=== PATIENT | male | born 1945 | race Caucasian/White ===

== ENCOUNTER 2024-07-29 11:23 | Inpatient (IN) | payer OTHER, SELFPAY ==
[2024-07-29] VITALS (13 sets, daily range): BP systolic 148–182; BP diastolic 67–90; BMI 27.5
--- NOTE | 2024-07-29 10:49 | W.PN.CARDCBS ---
Addendum entered and electronically signed by LAMONT Man 07/29/24 14:26:
2D Echo results- 07/29/24 at [facility] today prior to transfer:
SUMMARY
1. Normal left ventricular systolic function without distinct regional wall motion abnormalities.
2. Estimated left ventricular ejection fraction is normal with an ejection fraction of 53.2 % by Galicia's method.
3. Normal LV diastolic function, with normal left atrial filling pressure.
4. Normal right ventricular size and systolic function.
5. Normal left atrium by volume index (27.5 mL/m2) and normal right atrium by area (17.7 cm2).
6. Aortic valve is tricuspid and sclerotic. No evidence of aortic valve stenosis. Mild to moderate aortic regurgitation.
7. Possible calcium between NCC and LCC of the aorta.
8. Mild mitral annular calcification.
9. Inferior vena cava normal in size (<2.1 cm) + less than 50% variably consistent with elevated right atrial pressures (8 mmHg).
10. Right atrial pressure of (8 mmHg), the estimated right ventricular systolic pressure is normal at (27.8 mmHg).
11. Compared to a prior TTE study from 06/13/2021, no significant changes are seen.
Original Note:
Today's Communication / Plan
-
urgent LHC
continue to trend troponin/CK to peak
cardiac rehab
Impression / Plan
-
This is the H&P summary.
Full H&P scanned into documents.
PCP: Aquiles Gonzalez MD
CDY: Parish Kaye MD
HPI: 79 yo male hx of CAD s/p PCI of LAD 2013 at [facility], thrombocytopenia, IVONNE, diverticulitis followed by ATC developed SSCP at rest radiating to left arm yesterday lasting an hour. Later in the day had another episode that did not remit over at least
an hour. His BP was higher than normal. took to [facility] ER, was having CP on arrival, tx with SL NTG and then nitro GTT with resolution of pain. No pain overnight. First EKG showed new ST depressions anterolateral leads. HS Troponin up to 173, CK
112, CKMB 11.1 and both trending up.
FU EKG this am showed resolution of ST changes. He is pain free and hemodynamically stable. No recent illnesses, has been compliant with medications. 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 He is ruling
in for an NSTEMI. Started on IV heparin.
Transferred to for [facility] today.
IMPRESSION:
NSTEMI
Hx of CAD with prior LAD PCI 2013 at [facility]
Chronic thrombocytopenia
Mild normocytic anemia
HTN
HLD
IVONNE, untreated
Diverticulosis, prior colon resection
PLAN:
[facility] today
trend troponin/CKMB to peak
325mg asa given this morning
will be on DAPT post cath- monitor platelets with hx thrombocytopenia
echo done at [facility] today- results pending
High intensity statin therapy- will increase atorvastatin to 80/d
monitor BP- on amlodipine 2.5/d
consider adding BB, ACEI
cardiac rehab consult
Followup with Dr. Kaye at d/c
Progress Note - Signals Analyst
Subjective
Date of Service: July 29, 2024
[2024-07-29 12:20] LABS: ACT-LR - POC 155 Seconds (116-155)
[2024-07-29 12:24] LABS: ACT-LR - POC 208 Seconds (116-155)
[2024-07-29 12:42] LABS: ACT-LR - POC > 397 Seconds (116-155)
--- NOTE | 2024-07-29 12:51 | ITS.CL.ANGIO ---
Crystal Lapper - Angioplasty
Angioplasty
Procedure Report:
LEFT HEART CATHETERIZATION
Date of Procedure: July 29, 2024
Procedures performed:
1: Coronary angiography
2: Left ventricular hemodynamic assessment
3: Percutaneous coronary intervention of the right coronary artery with placement of a 3.75 x 18 mm Sen drug-eluting stent postdilated at high pressure with a 4.0 mm diameter noncompliant balloon
Primary Care Physician: Dr. Aquiles Gonzalez
Primary Intelligence Research Specialist: Dr. Mariluz Rider
INDICATION: The patient is a 76-year-old man with a past medical history of coronary artery disease status post LAD stenting who presents with unstable angina and rules in for a small non-ST elevation OR. LV function is normal by echo performed
this morning.
ACCESS: The patient was prepped and draped in usual sterile fashion. A 6 Fijian sheath was placed in the right radial artery using the Seldinger over the wire technique.
HEMODYNAMIC FINDINGS (mmHg):
LV(s/d,EDP): 167/11, 24
Ao(s/d,m): 167/77, 115
ANGIOGRAPHIC FINDINGS:
Single-plane Left Ventriculography in YUSUF Projection: Not done
Coronary Angiography:
Dominance: Right
Left Main: Medium caliber, widely patent.
Left Anterior Descending: The LAD is a medium caliber vessel that has moderate proximal calcification with no focal obstructive disease and mild luminal irregularities in the proximal portion. The previously placed long mid LAD stent is widely
patent with no significant in-stent restenosis. The jailed diagonal branch does have ostial 70 to 80% stenosis with BERNICE-3 flow into medium caliber distal vessels.
Left Circumflex: The left circumflex is a relatively small nondominant system that gives rise to a high first obtuse marginal branch that is medium caliber and courses in a ramus distribution. It is followed by 2 medium caliber obtuse marginal
branches that are patent with mild luminal irregularities and normal flow.
Right Coronary: The right coronary artery is a very large caliber dominant vessel that has a preocclusive 99% stenosis at the acute margin with BERNICE II distal flow and a underfilled PDA and PLV system.
Percutaneous Coronary Intervention (PCI): In light of his clinical presentation and the above angiographic findings, I elected to proceed with a PCI of the culprit right coronary artery. A 6 Fijian AL 0.75 mm guide catheter was used to engage. The
patient was pretreated with aspirin and unfractionated heparin. Once the wire was across the lesion I gave a double bolus of Integrilin according to protocol. At the end of the intervention a 600 mg oral dose of clopidogrel was given on the table.
A Hi-Torque floppy wire was used to cross the lesion. Predilation was performed with a 2.5 mm diameter balloon restoring BERNICE-3 flow. Next a 3.5 x 18 mm Hoopa stent was deployed at 16 doc. The stent was postdilated with a 4.0 mm diameter
noncompliant balloon inflated to 18 doc. This was done in a distal to proximal fashion taking care to stay within the stented margins.
FINAL RESULT: 0% in-stent residual stenosis with excellent angiographic result and BERNICE-3 flow in all distal vessels. Of note, there is a 50% smooth stent
Fluoroscopy Time (min): 5.6
Radiation Dose (mGy): 781
DAP (Gy.cm2): 53
Closure device: None. A TR band was applied for hemostasis at the right wrist.
Complications: None.
ASSESSMENT:
1: Successful PCI of the culprit right coronary artery with placement of a drug-eluting stent in the setting of a non-ST elevation OR as described above.
2: Widely patent previously placed LAD stent.
3: Elevated left ventricular filling pressures in the setting of elevated systemic blood pressure.
CONCLUSIONS and RECOMMENDATIONS:
1: Routine post non-STEMI and post drug-eluting stent medical therapy and monitoring. The patient needs dual antiplatelet therapy with aspirin and clopidogrel 75 mg daily uninterrupted for a year and aspirin 81 mg daily uninterrupted for life.
Maura Holden M.D.
Copy to: Dr. Aquiles Gonzalez
--- NOTE | 2024-07-29 13:00 | PTCARENOTE ---
Patient report received from geoscience laboratory technician. Patient received sp CCL NSTEMI for PCI NILS stent to the RCA. Previous LAD stent open. NSR: hypertensive: sbp's 170's to 180's: Dr. Holden aware. New orders received. Right radial exteral pressure device sit
with 12ml air: take air out per protocol and off at 415pm. Pulse ox right index finger with normal waveforms/perfusion. See flowrecord for remaining assessments.
[2024-07-29] MEDS: NSS 1000 IV (13:23)
[2024-07-29] MEDS: NORVASC 5 MG PO (13:50)
--- NOTE | 2024-07-29 16:15 | PTCARENOTE ---
Right radial TR band air all released: band removed. DSD/tegaderm applied over same.
--- NOTE | 2024-07-29 16:22 | CM ---
Chart reviewed. Patient is independent of ADLS, lives with his in a 2 STH, 2STE, 0 DME. Plan is for the patient to return home. CM to follow
[2024-07-29] MEDS: LIPITOR 80 MG PO (18:03)
[2024-07-29] MEDS: TYLENOL 650 MG PO (22:11)
--- NOTE | 2024-07-30 01:22 | PTCARENOTE ---
Tele monitor shows Sinus Adonay-NSR w/ occasional w/ occasional PVCs. HR in the 50-70's at rest. Pt c/o right sided discomfort, described as 'achy'. Tylenol administered --see MAR for further details. Right radial dressing C/d/i w/ positive pulse. Pt
aware of activity restrictions. Call santos within reach
[2024-07-30 03:28] VITALS: BMI 27.2
[2024-07-30 03:43] VITALS: BP 134/73
[2024-07-30 04:00] LABS: Hematocrit 38.6 % (39.0-52.0); Hemoglobin 13.2 g/dL (13.0-18.0); Mean Corp Hgb Conc. 34.2 g/dL (33.0-37.0); Mean Corpuscular Hgb 29.3 pg (27.0-31.0); Mean Corpuscular Volume 85.8 fL (80.0-94.0); Mean Platelet Volume 10.3 fL (7.4-10.4); Platelet Count 114 10^3/uL (130-400); Red Cell Dist. Width 13.2 % (11.5-14.5); White Blood Cell Count 6.7 10^3/uL (4.8-10.8)
[2024-07-30 04:12] LABS: Blood Urea Nitrogen 19 mg/dl (9-20); Calcium 9.5 mg/dl (8.4-10.2); Carbon Dioxide 22 mmol/L (22-30); Chloride 110 mmol/L (98-107); Estimated Creatinine Clearance 72 ml/min; Glucose 97 mg/dl (70-99); HDL Cholesterol 55 mg/dl; LDL Cholesterol, Calculated 57 mg/dl; Potassium 4.1 mmol/L (3.5-5.1); Sodium 143 mmol/L (135-145); Total Cholesterol 133 mg/dl (50-199); Triglyceride 106 mg/dl (10-149); Very Low Density Lipoprotein 21 mg/dl (0-30); eGFR > 60.00
[2024-07-30 07:08] VITALS: BP 151/77
[2024-07-30 07:10] VITALS: BP 151/77
[2024-07-30] MEDS: NORVASC 5 MG PO (07:42)
[2024-07-30] MEDS: LOW STRENGTH ASPIRIN 81 MG PO (07:42)
[2024-07-30] MEDS: PLAVIX 75 MG PO (07:42)
--- NOTE | 2024-07-30 09:17 | W.PN.CARDCBS ---
Addendum entered and electronically signed by Mohan Wallis MD 07/30/24 10:26:
I saw and examined the patient.
The Chief Substation Operator's note was reviewed and I agree with the note.
Comment:
GEN: No distress, awake, Ox3
HEENT: supple, anicteric, mmm
LUNGS: CTA, no wheezes/rales
CV: Reg, S1/S2, 1/6 syst LSB, no gallop
ABD: soft, BS+, NT/ND
EXT: No edema
NEURO: Gross non-focal
SKIN: No rash
Plan:
Doing well status post RCA PCI/non-STEMI. Will repeat troponin and continue to trend. Continue aspirin and Brilinta.
Has some resting sinus bradycardia so we will continue amlodipine and lisinopril.
Continue high-dose atorvastatin. LDL in the 50s.
Does have some mild thrombocytopenia. Continue to follow.
If troponin continues to improve okay for discharge later today.
Original Note:
Today's Communication / Plan
-
Trend troponin to peak
cardiac rehab consult
add lisinopril for elevated BP
followup with Dr. Kaye as scheduled
anticipate home in next 24 hours.
Impression / Plan
-
PCP: Aquiles Gonzalez MD
CDY: Parish Kaye MD
HPI: 79 yo male hx of CAD s/p PCI of LAD 2013 at [facility], thrombocytopenia, IVONNE, diverticulitis followed by ATC developed SSCP at rest radiating to left arm yesterday lasting an hour. Later in the day had another episode that did not remit over at least
an hour. His BP was higher than normal. took to [facility] ER, was having CP on arrival, tx with SL NTG and then nitro GTT with resolution of pain. No pain overnight. First EKG showed new ST depressions anterolateral leads. HS Troponin up to 173, CK
112, CKMB 11.1 and both trending up.
Transferred for [facility]-
RCA- preocclusive 99% stenosis at the acute margin- s/p angioplasty/NILS x1
Widely patent previously placed LAD stent
IMPRESSION:
NSTEMI
S/P angioplasty/NILS to RCA, 07/29/24
Hx of CAD with prior LAD PCI 2014 at [facility]
Chronic thrombocytopenia
Mild normocytic anemia
HTN
HLD
IVONNE, untreated
Diverticulosis, prior colon resection
PLAN:
Tele- NSR w/1st deg AVB, no vt/arrhythmia
radial cath site stable
Troponin 2.33 and rising- trend to peak
Echo results noted- nml LVSF, EF53%, no WMA, mild-mod AR
DAPT w/asa, plavix
Thrombocytopenia noted- prior plt ct 103, today 114- stable, continue to monitor while on DAPT
Lipid profile noted, atorvastatin increased to 80mg/d
BP elevated 150s- amlodipine increased to 5mg and will add lisinopril 5mg daily
HR 50-60- will hold off on BB for now
Cardiac rehab consult
Followup w/Dr. Kaye at d/c
Await next troponin, if trending down, likely d/c later today or tomorrow AM
Progress Note - Automatic Clipper And Stripper
Subjective
Date of Service: July 30, 2024
Denies cp/palps/dypsnea
oob ambulating
radial cath site without pain
Objective
Labs:
07/30/24 03:41
07/30/24 03:41
Labs
Hgb 13.2 g/dL (13.0-18.0) 07/30/24 03:41
Hct 38.6 % (39.0-52.0) L 07/30/24 03:41
Plt Count 114 10^3/uL (130-400) L 07/30/24 03:41
Sodium 143 mmol/L (135-145) 07/30/24 03:41
Potassium 4.1 mmol/L (3.5-5.1) 07/30/24 03:41
BUN 19 mg/dl (9-20) 07/30/24 03:41
Creatinine 0.9 mg/dL (0.7-1.3) 07/30/24 03:41
Glucose 97 mg/dl (70-99) 07/30/24 03:41
Troponins
07/29/24 07/29/24 07/30/24
11:58 20:27 03:41
Troponin I 1.150 H* 1.590 H* 2.330 H* D
07/30/24
12:00
Troponin I Cancelled
Vital Signs and I&O:
Vital Signs
Temp Pulse Resp BP Pulse Ox
97.6 F 58 16 151/77 98
07/30/24 07:08 07/30/24 07:08 07/30/24 07:08 07/30/24 07:08 07/30/24 08:00
Vital Signs
Temp Pulse Resp BP Pulse Ox
97.6 F 58 16 151/77 98
07/30/24 07:08 07/30/24 07:08 07/30/24 07:08 07/30/24 07:08 07/30/24 08:00
Intake & Output
07/28/24 07/29/24 07/30/24 07/31/24
06:59 06:59 06:59 06:59
Intake Total 1020 / 1020
Output Total 800 / 800
Balance 220 / 220
Physical Exam
Physical Exam
AAOx3, MAEE 5/5
RRR S1 S2 no murmurs
CTA bilat, non labored
soft abd, + bs
right radial cath site without ht/bleeding, non tender
bilat extremities w/palpable distal pulses, no edema
--- NOTE | 2024-07-30 10:16 | CM ---
Chart reviewed. Patient is independent of ADLS, lives with his in a 2 STH, 2 PETER, 0 DME. Plan is for the patient to return home. CM to follow
[2024-07-30] MEDS: ZESTRIL 5 MG PO (10:37)
--- NOTE | 2024-07-30 10:58 | W.DS.TRANS ---
DC Summary - Avionics Shop Supervisor
-
Discharge Instructions:
Discharge Diagnosis/Procedures NSTEMI, Angioplasty with stent to Right Coronary
artery
Diet Low Cholesterol
Driving Restrictions No driving for 24 hours
Other Services Cardiac Rehab
Instructions:
Stand-Alone Forms: DC Instructions- Cath/EP Lab
Changes to Home Medications: Yes
Discharge Medications:
DC Medications w/original date entered in [employer]
acetaminophen 325 mg tablet 650 mg PO Q6H PRN pain 07/29/24
aspirin 81 mg chewable tablet 81 mg PO DAILY 07/29/24
calcium carbonate 500 mg PO DAILY 07/29/24
multivitamin 1 tab PO DAILY 07/29/24
amlodipine 5 mg tablet 5 mg PO DAILY #90 tabs 07/30/24
atorvastatin 80 mg tablet 80 mg PO QPM #90 tabs 07/30/24
clopidogrel 75 mg tablet 75 mg PO DAILY #90 tabs 07/30/24
lisinopril 5 mg tablet 5 mg PO DAILY #90 tabs 07/30/24
Home Medication Changes
NEW: plavix, lisinopril
DOSE INCREASE: amlodipine, atorvastatin
Pending Results: No
[2024-07-30 12:00] VITALS: BP 142/70
--- NOTE | 2024-07-30 12:09 | PTCARENOTE ---
Pt received this am oob ad zac, gait steady. Denies any chest pain or sob. Right radial site dressing dry and intact. Pt discharged to home with his . Discharge instructions given and reviewed with good understanding.
== END 2024-07-30 12:36 | disposition home or self-care (01) | DRG 322 ==
LOC: IVU 11:23
PROVIDERS: Nurse Practitioner; Nurse Practitioner Adult Health; ADMITTING PHYSICIAN Internal Medicine Interventional Cardiology; ATTENDING PHYSICIAN Internal Medicine Cardiovascular Disease; FAMILY PHYSICIAN Family Medicine
PROC: B2111ZZ Fluoroscopy of Multiple Coronary Arteries using Low Osmolar Contrast (ICD-10-PCS; 2024-07-29)
PROC: B2151ZZ Fluoroscopy of Left Heart using Low Osmolar Contrast (ICD-10-PCS; 2024-07-29)
PROC: 027034Z Dilation of Coronary Artery, One Artery with Drug-eluting Intraluminal Device, Percutaneous Approach (ICD-10-PCS; 2024-07-29)
PROC: 4A023N7 Measurement of Cardiac Sampling and Pressure, Left Heart, Percutaneous Approach (ICD-10-PCS; 2024-07-29)
DX: I21.4 Non-ST elevation (NSTEMI) myocardial infarction (principal); D69.6 Thrombocytopenia, unspecified; I10 Essential (primary) hypertension; D64.9 Anemia, unspecified; I25.10 Atherosclerotic heart disease of native coronary artery without angina pectoris; E78.5 Hyperlipidemia, unspecified; G47.33 Obstructive sleep apnea (adult) (pediatric); I44.0 Atrioventricular block, first degree; Z79.82 Long term (current) use of aspirin; Z79.899 Other long term (current) drug therapy; Z95.5 Presence of coronary angioplasty implant and graft; Z87.19 Personal history of other diseases of the digestive system; Z90.49 Acquired absence of other specified parts of digestive tract
CPT/HCPCS: 80048; 80061; 84484; 85027; 85347; 93005; 93458; C1725; C1769; C1874; C1887; C1894; C9600; J1327; Q9967